=== PATIENT | male | born 1995 | race Native Hawaiian/Other Pacific Islander ===

== ENCOUNTER 2018-11-23 09:33 | Emergency (ER) | payer OTHER ==
[~2018-11-23] VITALS: Ht 182.9 cm; Wt 70.3 kg
[2018-11-23 09:43] VITALS: TEMP 97.9
[2018-11-23 10:39] LABS: PLATELET COUNT 224 K/uL (142-355); POTASSIUM 4.5 mmol/L (3.6-5.2)
[2018-11-23 12:23] VITALS: BP 111/74
== END 2018-11-23 12:23 | disposition home or self-care (01) ==
LOC: ED 09:33
PROVIDERS: Family Medicine
DX: E86.0 Dehydration (principal); R11.2 Nausea with vomiting, unspecified; X30.XXXA Exposure to excessive natural heat, initial encounter; Y93.89 Activity, other specified; Y92.017 Garden or yard in single-family (private) house as the place of occurrence of the external cause
CPT/HCPCS: 36415; 80053; 81000; 85027; 96360; 96375; 99284; J1885; J2405